=== PATIENT | male | born 2000 | race Caucasian/White ===

== ENCOUNTER 2023-11-20 11:19 | Emergency (ER) | payer OTHER ==
[2023-11-20] MEDS: Lidocaine 1% 5 ML VIAL INJECT ONE (11:39)
[2023-11-20] MEDS: Diphtheria,Pertussis(Acell),Tetanus Vaccine 0.5 ML Syringe IM ONE (11:40)
== END 2023-11-20 12:17 | disposition home or self-care (01) ==
LOC: MW.ED 11:19
DX: S61.211A Laceration without foreign body of left index finger without damage to nail, initial encounter (principal); Z23 Encounter for immunization; X58.XXXA Exposure to other specified factors, initial encounter
CPT/HCPCS: 12001; 90471; 90715; 99282-25; 99283; J3490